=== PATIENT | female | born 2000 | race Caucasian/White ===

== ENCOUNTER 2021-07-22 10:00 | Outpatient (CLI) | payer MEDICAID, SELFPAY ==
[~2021-07-22] VITALS: Ht 160 cm; Wt 58.1 kg
== END 2021-07-22 11:00 | disposition home or self-care (01) ==
LOC: SLB 10:00 → EDSTATUS 07-26 08:00
PROVIDERS: ATTEND Otolaryngology
DX: Z01.818 Encounter for other preprocedural examination (principal); H66.93 Otitis media, unspecified, bilateral; Z20.822 Contact with and (suspected) exposure to COVID-19
CPT/HCPCS: U0003

== ENCOUNTER 2021-08-30 08:19 | Day surgery (SDC) | payer MEDICAID, SELFPAY ==
[~2021-08-30] VITALS: Ht 160 cm; Wt 58.5 kg
[2021-08-30 08:49] LABS: HCG,QUAL RESULT NEGATIVE (NEGATIVE)
[2021-08-30] MEDS ORDERED: MIDAZOLAM HCL 5 MG/ML VIAL (VERSED) IV ONE (11:55)
[2021-08-30] MEDS ORDERED: PROPOFOL 200MG/ 20ML VIAL (DIPRIVAN) IV ONE (11:55)
[2021-08-30] MEDS ORDERED: KETOROLAC TROMETHAMINE 30 MG VIAL ONE (11:55)
[2021-08-30] MEDS ORDERED: LR 1,000 ML IV.SOLN IV ONE (11:55)
[2021-08-30] MEDS ORDERED: LIDOCAINE 1% 10 MG/ML, 20 ML MDV ONE (11:55)
[2021-08-30] MEDS ORDERED: ONDANSETRON HCL 4 MG/2 ML VIAL ONE (11:55)
[2021-08-30] MEDS ORDERED: SEVOFLURANE 15 MIN GAS INH ONE (11:55)
[2021-08-30] MEDS ORDERED: OFLOXACIN 0.3%, 5 ML EAR DROPS ONE (11:55)
[2021-08-30] MEDS ORDERED: WATER FOR IRRIGATION,STERILE 1,000 ML IRRIG.SOLN IR ONE (11:55)
[2021-08-30] MEDS ORDERED: fentaNYL CITRATE/PF 100 MCG/2 ML AMP ONE (11:55)
[2021-08-30] MEDS ORDERED: GLYCOPYRROLATE 0.2 MG/ML VIAL ONE (11:55)
[2021-08-30] MEDS ORDERED: METOCLOPRAMIDE HCL 10 MG/2 ML VIAL ONE (11:55)
[2021-08-30] MEDS ORDERED: HYDROmorphone 1 MG/ML INJ. CARTRIDGE IVP PRN (12:00)
[2021-08-30] MEDS ORDERED: ONDANSETRON HCL 4 MG/2 ML VIAL IVP PRN ×2 (12:00→12:15)
[2021-08-30] MEDS ORDERED: HYDROmorphone 2 MG/ML VIAL IVP PRN (12:00)
[2021-08-30] MEDS ORDERED: LR 1,000 ML IV SCH (12:00)
[2021-08-30] MEDS ORDERED: KETOROLAC TROMETHAMINE 30 MG VIAL IVP PRN (12:00)
[2021-08-30] MEDS ORDERED: ONDANSETRON 4 MG ODT TAB PO PRN (12:15)
[2021-08-30] MEDS ORDERED: ACETAMINOPHEN 500 MG TABLET PO PRN (12:15)
[2021-08-30 15:57] VITALS: BP_SYST 117
== END 2021-08-30 14:05 | disposition home or self-care (01) ==
LOC: SMU 08:19 → SDS 08:19
PROVIDERS: ATTEND Otolaryngology
DX: H60.93 Unspecified otitis externa, bilateral (principal); H90.0 Conductive hearing loss, bilateral; H69.93 Unspecified Eustachian tube disorder, bilateral; Z20.822 Contact with and (suspected) exposure to COVID-19; Z79.899 Other long term (current) drug therapy
CPT/HCPCS: 36415; 84703; J1885; J2001; J2250; J2405; J2704; J2765; J3010; J3490; J7120; L8699